=== PATIENT | male | born 1980 ===

== ENCOUNTER → 2016-12-05 | Outpatient (REF) | payer OTHER ==
[2016-12-05 09:50] LABS: NON PROGRESSIVE MOTILITY (c) 8 %; PROGRESSIVE MOTILITY (a) 14 % (>=32); TOTAL MOTILITY 22 % (>=40)
[2016-12-05 09:51] LABS: % NORMAL FORMS 4 % (>=4); IMMOTILITY 78 %; SPERM# 144.3 M/Ejac (33-46); TOTAL FUNCTIONAL 1.9 M/Ejac.; TOTAL PROGRESSIVE SPERM 19.8 M/Ejac.
== END ==
LOC: M LAB REF 09:22
DX: Z31.41 Encounter for fertility testing (principal)